=== PATIENT | female | born 2005 | race African-American/Black ===

== ENCOUNTER 2024-01-08 13:19 | Emergency (ER) | payer OTHER ==
[2024-01-08] MEDS ORDERED: Ketorolac Tromethamine 30 MG (1 mL) VIAL ONE (14:09)
== END 2024-01-08 15:07 | disposition home or self-care (01) ==
LOC: CSHERS 13:19
DX: M25.512 Pain in left shoulder (principal); V89.2XXA Person injured in unspecified motor-vehicle accident, traffic, initial encounter
CPT/HCPCS: 96372; 99283; J1885